=== PATIENT | female | born 1980 | race Two or more races ===

== ENCOUNTER 2020-12-24 09:51 | Outpatient (CLI) | payer OTHER ==
[2020-12-24 23:21] LABS: SARS-CoV-2 PCR by NAA Not Detected (NotDetected)
== END 2020-12-24 09:52 | disposition home or self-care (01) ==
LOC: LABBT 09:51
PROVIDERS: ATTEND Surgery
DX: Z01.812 Encounter for preprocedural laboratory examination (principal); M54.16 Radiculopathy, lumbar region; Z20.822 Contact with and (suspected) exposure to COVID-19
CPT/HCPCS: 87635; U0003; U0005

== ENCOUNTER 2020-12-28 09:56 | Day surgery (SDC) | payer OTHER ==
[2020-12-24 10:56] VITALS: BMI 33.5
[2020-12-28] MEDS ORDERED: Ketorolac Tromethamine 30 MG/ML VIAL ONE (10:09)
[2020-12-28] MEDS ORDERED: PROPOFOL 200 MG/20 ML VIAL ONE (10:09)
[2020-12-28] MEDS ORDERED: Dexamethasone 20 MG/5 ML VIAL ONE (10:09)
[2020-12-28] MEDS ORDERED: Lidocaine 1% PF 5 ML VIAL ONE (10:09)
[2020-12-28] MEDS ORDERED: Midazolam HCl 2 mg/2 ml Vial ONE (10:40)
[2020-12-28] MEDS ORDERED: Fentanyl 100 MCG/2 ML VIAL ONE ×2 (10:40→11:50)
== END 2020-12-28 13:58 | disposition home or self-care (01) ==
LOC: SDC/OP 09:56
PROVIDERS: ATTEND Surgery
DX: M51.17 Intervertebral disc disorders with radiculopathy, lumbosacral region (principal); K80.20 Calculus of gallbladder without cholecystitis without obstruction; Z79.899 Other long term (current) drug therapy
CPT/HCPCS: 72148; J1100; J1885; J2250; J2704; J3010

== ENCOUNTER 2021-01-21 08:51 | Outpatient (CLI) | payer OTHER ==
[2021-01-21 12:05] LABS: Hemoglobin 12.1 g/dL (12.0-15.5); Mean Corpuscular HGB CONC 32.4 g/dL (32.0-36.0); Mean Corpuscular Hemoglobin 30.1 pg (27.0-33.0); Mean Corpuscular Volume 92.8 fl (81.6-98.3); Mean Platelet Volume 10.7 fl (7.4-10.4); Platelet Count 274 10x3/uL (150-450); RBC Distribution Width 12.7 % (11.5-14.5); Red Blood Cell (RBC) Count 4.02 10x6/uL (3.90-5.03); White Blood Cell (WBC) Count 6.7 10x3/uL (3.5-10.5)
[2021-01-21 12:17] LABS: Anion Gap 14 mmol/L (10-20); BUN (Urea Nitrogen) 17 mg/dL (7.0-18.7); Calc. Creatinine Clearance 0 mL/min (70-130); Carbon Dioxide 26 mmol/L (22-29); Chloride 104 mmol/L (98-107); Glucose 90 mg/dL (70-105); Potassium 3.7 mmol/L (3.5-5.1); Sodium 140 mmol/L (136-145)
[2021-01-21 12:19] LABS: PTT 26.4 sec (22.0-33.0); Prothrombin Time 10.4 sec (9.5-12.1)
[2021-01-21 17:25] LABS: SARS-CoV-2 PCR by NAA Not Detected (NotDetected)
--- NOTE | 2021-01-21 21:04 | EKG ---
Test Reason : Blood Pressure : / mmHG Vent. Rate : 056 BPM Atrial Rate : 056 BPM P-R Int : 118 ms QRS Dur : 090 ms QT Int : 472 ms P-R-T Axes : 039 077 047 degrees QTc Int : 455 ms Sinus bradycardia Otherwise normal ECG No previous ECGs available Confirmed by Rosamaria ELIZABETH ([id number]) on 01/21/2021 9:03:51 PM Referred By: BHAVANI Confirmed By:Rosamaria ELIZABETH
== END 2021-01-21 08:52 | disposition home or self-care (01) ==
LOC: LABBT 08:51
PROVIDERS: ATTEND Surgery
DX: Z01.818 Encounter for other preprocedural examination (principal); M51.16 Intervertebral disc disorders with radiculopathy, lumbar region; Z20.822 Contact with and (suspected) exposure to COVID-19
CPT/HCPCS: 80048; 85027; 85610; 85730; 87635; 93005; 93010; U0003; U0005

== ENCOUNTER 2021-01-26 10:41 | Day surgery (SDC) | payer OTHER ==
[2021-01-25 12:36] VITALS: BMI 33.6
[2021-01-26] MEDS ORDERED: Ondansetron PF 4 MG/2 ML Vial ONE (10:53)
[2021-01-26] MEDS ORDERED: Lidocaine 1% PF 5 ML VIAL ONE (10:53)
[2021-01-26] MEDS ORDERED: Rocuronium Bromide 10 MG/ML (10ML VIAL) ONE (10:53)
[2021-01-26] MEDS ORDERED: Ketorolac Tromethamine 30 MG/ML VIAL ONE (10:53)
[2021-01-26] MEDS ORDERED: PROPOFOL 200 MG/20 ML VIAL ONE (10:53)
[2021-01-26] MEDS ORDERED: Dexamethasone 20 MG/5 ML VIAL ONE (10:53)
[2021-01-26] MEDS ORDERED: Acetaminophen/Codeine 30-300mg Tablet PO PRN (13:19)
[2021-01-26] MEDS ORDERED: Bisacodyl 10 MG SUPP PR PRN (13:19)
[2021-01-26] MEDS ORDERED: Milk Of Magnesia 30 ML UDCUP PO PRN (13:19)
[2021-01-26] MEDS ORDERED: traMADol HCl 50 MG TAB PO PRN (13:19)
[2021-01-26] MEDS ORDERED: Acetaminophen 325 MG TAB PO PRN (13:19)
[2021-01-26] MEDS ORDERED: tiZANidine HCl 4 MG TAB PO PRN (13:19)
[2021-01-26] MEDS ORDERED: Mag-Al 1200 mg/1200 mg/30 ML UDCUP PO PRN (13:19)
[2021-01-26] MEDS ORDERED: Thrombin 5000 UNITS/5 ML VIAL ONE (13:20)
[2021-01-26] MEDS ORDERED: AMPHETAMINE PO PRN (13:21)
[2021-01-26] MEDS ORDERED: DEXTROAMPHETAMINE PO PRN (13:21)
[2021-01-26] MEDS ORDERED: Midazolam HCl 2 mg/2 ml Vial ONE ×2 (13:32→14:20)
[2021-01-26] MEDS ORDERED: Fentanyl 100 MCG/2 ML VIAL ONE ×6 (13:44→16:28)
[2021-01-26] MEDS ORDERED: Propofol 1,000 MG/100 ML VIAL IV ONE (14:20)
[2021-01-26] MEDS ORDERED: SUGAMMADEX SODIUM 200 MG/2 ML VIAL ONE (15:10)
[2021-01-26] MEDS ORDERED: HYDROmorphone 2 MG/ML VIAL ONE ×3 (15:26→17:29)
[2021-01-26] MEDS ORDERED: Ondansetron HCl/PF 4 MG/2 ML Vial IVP PRN (15:46)
[2021-01-26] MEDS ORDERED: Promethazine HCl 25 MG/ML VIAL IM PRN (15:46)
[2021-01-26] MEDS ORDERED: PACU-Morphine 4MG/ML VIAL SLOW IVP PRN (15:46)
[2021-01-26] MEDS ORDERED: HYDROmorphone 2 MG/ML VIAL SLOW IVP PRN (15:46)
[2021-01-26] MEDS ORDERED: Morphine Sulfate 2 MG/ML SYRINGE SLOW IVP PRN (15:46)
[2021-01-26] MEDS ORDERED: Promethazine HCl 25 MG/ML VIAL SLOW IVP PRN (15:46)
[2021-01-26] MEDS ORDERED: HYDROmorphone 0.5 MG/0.5 ML SYRINGE ONE ×3 (16:04→17:29)
[2021-01-26] MEDS ORDERED: Diazepam 5 MG TAB PO PRN (16:20)
[2021-01-26] MEDS ORDERED: Diazepam 5 MG TAB ONE (16:24)
[2021-01-26] MEDS ORDERED: Diazepam 10 MG/2 ML SYRINGE IVP SCH (18:30)
[2021-01-26] MEDS ORDERED: CEFAZOLIN 2 GM in Premix Bag 1 BAG IVPB SCH (19:00)
[2021-01-26] MEDS: Sodium Chloride 0.9% 1,000 ML IV SCH (19:46)
[2021-01-26] MEDS: HYDROcodone/Acetaminophen 7.5/325 mg Tablet PO PRN (20:32)
[2021-01-26] MEDS: Gabapentin 300 MG CAP PO SCH (20:33)
[2021-01-26] MEDS ORDERED: Zolpidem Tartrate 5 MG TAB PO SCH (21:00)
[2021-01-26] MEDS ORDERED: lamoTRIgine 100 MG TAB PO SCH (21:00)
[2021-01-26] MEDS ORDERED: Citalopram 20 MG TAB PO SCH (21:00)
[2021-01-26] MEDS: CEFAZOLIN 2 GM in Premix Bag 1 BAG IVPB SCH (21:27)
[2021-01-26] MEDS: Morphine 2 MG/ML VIAL SLOW IVP PRN (21:52)
[2021-01-27] MEDS: Sodium Chloride 0.9% 1,000 ML IV SCH (02:56)
[2021-01-27] MEDS: Morphine 2 MG/ML VIAL SLOW IVP PRN ×2 (03:02→09:27)
[2021-01-27] MEDS: CEFAZOLIN 2 GM in Premix Bag 1 BAG IVPB SCH (05:50)
[2021-01-27] MEDS ORDERED: Levothyroxine Sodium 125 MCG TAB PO SCH (06:00)
--- NOTE | 2021-01-27 07:14 | OP ---
DATE OF PROCEDURE: 01/26/2021 LOCATION: OR-12. HOUSEKEEPING/LAUNDRY SUPERVISOR: Tracie Mccoy PA-C PREPROCEDURE DIAGNOSIS: Low back and right greater than left lower extremity pain with recurrent right L5-S1 disk extrusion. POSTPROCEDURE DIAGNOSIS: Low back and right greater than left lower extremity pain with recurrent right L5-S1 disk extrusion. PROCEDURES PERFORMED: 1. Bilateral revision L5-S1 hemilaminotomy, foraminotomy with right-sided diskectomy. 2. Use of operating microscope for microdissection, modifier 50 should be added as this surgery was a bilateral surgery. DESCRIPTION OF PROCEDURE: After informed consent was obtained from the patient, the patient was brought to the OR. Proper patient, pause, and identification were carried out. She was placed under excellent general endotracheal anesthesia and positioned prone on the OR table. All appropriate points were padded. We identified the L5-S1 dorsal spines and a linear ed was made over this area. This region was sterilely cleansed, prepared, and draped. Proper patient, pause, and identification were carried out. The wound was then opened with combination of sharp, monopolar, and blunt dissection, proceeded to expose the L5-S1 dorsal spines and bilateral revision hemilaminotomy, foraminotomy was performed with the use of the operating microscope for microdissection, working over the shoulder of the traversing right S1 nerve root. Multiple disk fragments were removed. Copious irrigation occurred throughout as did maximizing hemostasis. The wound was then closed in anatomic layers following sprinkling of vancomycin powder. The patient emerged from anesthesia. Job ID: [id number]
[2021-01-27] MEDS: Gabapentin 300 MG CAP PO SCH (08:13)
[2021-01-27] MEDS: HYDROcodone/Acetaminophen 7.5/325 mg Tablet PO PRN ×2 (08:16→13:58)
--- NOTE | 2021-01-27 08:30 | PRG ---
DATE OF SERVICE: 01/27/2021 Ms. Tripathi is doing well on postoperative day 1. She has had resolution in her leg pain and back and buttock pain, but has expected surgical site pain. Her strength is good. She is mobilized and met criteria. She will be discharged. Job ID: [id number]
[2021-01-27 11:45] VITALS: TEMP 98.4
[2021-01-27 15:21] VITALS: BP 112/60
== END 2021-01-27 15:51 | disposition home or self-care (01) ==
LOC: SDC 10:41 → T4-A 13:19 → SDC 01-27 15:51
PROVIDERS: ATTEND Surgery
PROC: 0ST40ZZ Resection of Lumbosacral Disc, Open Approach (ICD-10-PCS; principal; 2021-01-26)
PROC: 01NB0ZZ Release Lumbar Nerve, Open Approach (ICD-10-PCS; principal; 2021-01-26)
DX: M51.27 Other intervertebral disc displacement, lumbosacral region (principal); M54.16 Radiculopathy, lumbar region; Z79.899 Other long term (current) drug therapy
CPT/HCPCS: 76000; J0690; J1100; J1170; J1885; J2250; J2270; J2405; J2704; J3010; J3370